=== PATIENT | male | born 2000 | race Caucasian/White ===

== ENCOUNTER 2019-12-23 14:15 | Outpatient (CLI) | payer OTHER, SELFPAY ==
--- NOTE | ~2019-12-23 | CT_ITS ---
EXAMINATION: CT abdomen pelvis wo con DATE: 12/23/2019 14:45 INDICATION: Cellulitis of the umbilicus TECHNIQUE: Computed tomography (CT) of the abdomen and pelvis was performed without intravenous contr ast. Automated exposure control and iterative reconstruction technique were employed. The dose-length product was 536.31 mGy-cm. COMPARISON: 06/17/2018 FINDINGS: Lung bases are clear. Heart size is normal. No pericardial or pleural effusion. Prominent hepatic lillian atosis along the ligamentum teres with significant interval decrease in attenuation but without evide nt mass effect with no change in morphology of the liver at this location. Gallbladder, spleen, pancr eas, bilateral adrenal glands and kidneys are normal. Bowels including the appendix are normal. Bladd er is normal. No free intraperitoneal gas or fluid. No pathologically enlarged abdominal or pelvic ly mphadenopathy. Stopper change of prior umbilical hernia mesh repair. No inflammatory stranding in the surrounding subcutaneous fat. No abscess or other abnormal fluid collections identified. Bones are u nremarkable. IMPRESSION: 1. No acute intra-abdominal/pelvic process. 2. Postoperative change of interval umbilical hernia mesh repair with no abscess or inflammatory stra nding in the surrounding fat. Reviewed, dictated and finalized at location A. IMPRESSION: 1. No acute intra-abdominal/pelvic process. 2. Postoperative change of interval umbilical hernia mesh repair with no absces s or inflammatory stranding in the surrounding fat.
== END 2019-12-23 14:16 | disposition home or self-care (01) ==
LOC: ANHIMG 14:24
PROVIDERS: PCP Family Medicine Adolescent Medicine; Visit Provider Surgery
DX: L03.316 Cellulitis of umbilicus (principal)
CPT/HCPCS: 74176

== ENCOUNTER 2022-05-29 14:11 | Outpatient (CLI) | payer OTHER, SELFPAY ==
--- NOTE | ~2022-05-29 | XR_ITS ---
EXAMINATION: HAND-ABNER ARTHRITIS 3+VIEWS DATE: 05/29/2022 14:23 INDICATION: Hand pain TECHNIQUE: Posteroanterior, lateral, and oblique views of the left and of the right hands as well as a ballcatchers view of both hands were obtained. COMPARISON: None. FINDINGS: Alignment is normal. No fracture. Joint spaces are normal. No erosions or osteophytosis. Soft tissues are unremarkable. IMPRESSION: 1. Normal bilateral hand radiographs. Reviewed, dictated and finalized at location A. TREATMENT OFFSIDER
== END 2022-05-29 14:12 | disposition home or self-care (01) ==
PROVIDERS: PCP Family Medicine; Visit Provider Family Medicine
DX: M79.643 Pain in unspecified hand (principal)
CPT/HCPCS: 73130

== ENCOUNTER 2023-05-04 16:06 | Emergency (ER) | payer OTHER, BC, SELFPAY ==
--- NOTE | ~2023-05-04 | CT_ITS ---
EXAMINATION: CT abdomen pelvis wo con DATE: 05/04/2023 16:37 INDICATION: Abdominal pain TECHNIQUE: Computed tomography (CT) of the abdomen and pelvis was performed without intravenous contr ast. The dose-length product (DLP) was 1594.87 mGy-cm. Automated exposure control and iterative recon struction technique were employed. COMPARISON: 12/23/2019 FINDINGS: The lung bases are clear. The heart size is normal. The liver, spleen, pancreas, gallbladde r, and adrenal glands are normal. The kidneys are unremarkable. No pathologically enlarged abdominal or pelvic lymph nodes are identified. No free intraperitoneal gas or evidence of bowel obstruction. T he appendix is normal. There is inflammatory change surrounding the umbilicus. No discrete abscess is identified although sensitivity is limited by the absence of intravenous contrast. IMPRESSION: 1. Cellulitis surrounding the umbilicus without discrete abscess identified, sensitivity limited with out intravenous contrast. Reviewed, dictated and finalized at location F. FIC SAFETY ADMINISTRATOR IMPRESSION: 1. Cellulitis surrounding the umbilicus without discrete abscess identified, se nsitivity limited without intravenous contrast.
[2023-05-04 16:09] VITALS: BP 156/79; PULSE 106; RESP 19; TEMP 36.2; O2SAT 99
--- NOTE | 2023-05-04 16:21 | ED.ABDPAIN ---
HPI - Abdominal Pain General Chief Complaint: Abdominal Pain Stated Complaint: abdominal pain/hernia complication Time Seen by Provider: 05/04/23 16:08 Source: patient Mode of arrival: ambulatory Limitations: no limitations History of Present Illness HPI narrative: patient is a 22-year-old male with a umbilicus skin redness and drainage where his hernia repair was done back in 2019. Three days ago he started having redness and discomfort around the area of the umbilical area. 20 minutes ago this area started draining pus and blood. He got his surgery done at [facility] back in 2019. elicited complaint: other ( Abdominal wall skin pain at hernia site) Pertinent past history: other ( hernia repair 2019) Onset (ago): day(s) (3) Pain Consistency: constant Location: other ( umbilicus) Severity: mild Pain scale (0-10): 3 Quality: sharp Radiation: none Migration to: no migration Exacerbating factors: nothing Relieving factors: nothing Associated symptoms: denies other symptoms Related Data Allergies Allergy/AdvReac Type Severity Reaction Status Date / Time No Known Allergies Allergy Verified 05/04/23 16:08 Review of Systems Review of Systems: All systems reviewed & are unremarkable except as noted in HPI and below Constitutional: Constitutional: Reports no additional constitutional complaints Eyes: Eyes: Reports no additional eye complaints ENT: Reports system reviewed and no additional complaints, except as documented Cardiovascular: Cardiovascular: Reports no additional cardiovascular complaints Respiratory: Respiratory: Reports no additional respiratory complaints Gastrointestinal: Gastrointestinal: Reports no additional gastrointestinal complaints Genitourinary: Genitourinary: Reports no additional male genitourinary complaints Musculoskeletal: Musculoskeletal: Reports no additional musculoskeletal complaints Integumentary/Breasts: Skin/Breast: Reports system reviewed and no additional complaints, except as docu Neurologic: Reports system reviewed and no additional complaints, except as documented Psychiatric: Psychiatric: Reports no additional psychiatric complaints Endocrine: Endocrine: Reports no additional endocrine complaints Hematologic/Lymphatic: Hematologic/Lymphatic: Reports no additional hematologic/lymphatic complaints Allergic/Immunologic: Allergic/Immunologic: Reports no additional allergic/immunologic complaints PMFSH Past Medical History Medical History ADHD Cellulitis, umbilical Surgical History Surgical History H/O umbilical hernia repair Family History Family History Father Diabetes mellitus Grandparent Cancer Grandparent Heart disease Social History Social History Smoking status: Never smoker Alcohol intake: current Substance use: never Lack of Transportation: No Lack of Food: Never True Current Housing: I Have Housing Concerned About Future Housing: No Difficulty Paying Gas/Electric Bills: No Difficulty Paying for Meds: No Currently Unemployed: No Education: High School Diploma/GED Difficulty w/ Childcare or Family Care: No Living arrangements: with family Occupation/Education: occupation Additional occupation/education comments: [employer] Gender identity (if verbalized by the patient): Male Agree to blood products: Yes Exam Const: General: healthy appearing Nutritional Appearance: well nourished Orientation/consciousness: patient oriented x3 HENMT: Head: normal to inspection Ears: external ears normal Face/Nose/Sinus: Normal external nose present Eyes: Conjunctivae: conjunctivae normal Pupils: Equal, round and reactive pupils present EOM: EOMs intact bilaterally Neck: Neck: normal visual in
[2023-05-04 16:30] VITALS: BP 125/71; PULSE 89; RESP 17; O2SAT 98
--- NOTE | 2023-05-04 16:32 | PC.NURSE ---
patient taken down to CT.
[2023-05-04 17:00] VITALS: BP 121/57; PULSE 88; RESP 17; O2SAT 97
[2023-05-04 17:03] LABS: Basophils Absolute Auto 0.06 K/mm3 (0.00-0.10); Basophils Percent Auto 0.5 % (0.0-1.0); Eosinophils Absolute Auto 0.09 K/mm3 (0.02-0.50); Eosinophils Percent Auto 0.8 % (1.0-6.0); Immature Granulocyte Absolute 0.07 K/mm3 (0.00-0.00); Immature Granulocyte Percent A 0.6 % (0.0-0.0); Lymphocytes Absolute Auto 1.78 K/mm3 (1.10-4.50); Lymphocytes Percent Auto 16.2 % (18.0-42.0); Mean Corpuscular HGB Conc 33.3 g/dL (32.0-36.0); Mean Corpuscular Hemoglobin 28.1 pg (27.0-31.0); Mean Corpuscular Volume 84.4 fL (78.0-102.0); Mean Platelet Volume 9.7 fl (8.7-11.0); Monocytes Absolute Auto 0.56 K/mm3 (0.10-0.90); Monocytes Percent Auto 5.1 % (2.0-11.0); Neutrophils Absolute Auto 8.4 K/mm3 (1.7-7.2); Neutrophils Percent Auto 76.8 % (50.0-70.0); Platelet Count Result 321 K/mm3 (150-420); Red Blood Count 5.33 M/mm3 (4.70-6.10); Red Cell Distribution Width 11.9 % (11.6-14.4)
[2023-05-04 17:14] LABS: INR 1.1; Partial Thromboplastin Time 30.8 SEC (23.90-30.70); Prothrombin Time 11.6 Seconds (9.50-12.10)
[2023-05-04 17:16] LABS: Alanine Aminotransferase 69 U/L (16-63); Albumin Level 4.1 g/dL (3.4-5.0); Alkaline Phosphatase 91 U/L (46-116); Anion Gap 11 mmol/L (8-16); Aspartate Amino Transferase 28 U/L (15-37); Bilirubin,Total 0.5 mg/dL (0.00-1.00); Blood Urea Nitrogen 15 mg/dL (7-18); Calcium 9.3 mg/dL (8.5-10.1); Carbon Dioxide 28 mmol/L (21-32); Chloride 101 mmol/L (98-108); Estimated CRCL calculation 113 ml/min; Estimated Glomerular Filt Rate > 60; Glucose 103 mg/dL (70-99); Osmolality Calculated 290 mOsm/kg (285-295); Potassium 3.3 mmol/L (3.5-5.1); Sodium 140 mmol/L (136-145); Total Protein 8.6 g/dL (6.4-8.2)
[2023-05-04] MEDS: PIPERACILLN/TAZ 3.375GM/NS50ML 3.375 GM/50 ML BAG IVPB (17:16)
[2023-05-04 17:30] VITALS: BP 133/52; PULSE 85; RESP 17; O2SAT 97
[2023-05-04 17:39] LABS: SARS-CoV-2 RNA PCR Negative (Negative)
[2023-05-04 17:53] LABS: Influenza A QL RT-PCR Negative (Negative); Influenza B QL RT-PCR Negative (Negative); RSV RNA, RT-PCR Negative (Negative)
[2023-05-04 18:00] VITALS: BP 134/80; PULSE 84; RESP 17; O2SAT 96
[2023-05-04] MEDS: CIPROFLOXACIN 500 MG TAB PO (18:20)
[2023-05-04] MEDS: POTASSIUM CHLORIDE 20 MEQ ER TABLET PO (18:20)
[2023-05-04 18:25] VITALS: BP 136/85; PULSE 87; RESP 17; TEMP 36.8; O2SAT 99
--- NOTE | 2023-05-08 13:49 | PC.NURSE ---
Final wound culture results, no growth, no further treatment or action needed. Patient was instructed follow up upon discharge.
--- NOTE | 2023-05-11 12:23 | PC.NURSE ---
blood culture reviewed, no growth 5 days
== END 2023-05-04 18:25 | disposition home or self-care (01) ==
PROVIDERS: Emergency Provider Emergency Medicine; PCP Family Medicine
DX: L03.311 Cellulitis of abdominal wall (principal); K42.9 Umbilical hernia without obstruction or gangrene; Z20.822 Contact with and (suspected) exposure to COVID-19
CPT/HCPCS: 36415; 74176; 80053; 85025; 85610; 85730; 87040; 87070; 87205; 87637; 96365; 99284; A9270; J2543

== ENCOUNTER 2023-05-07 00:58 | Day surgery (SDC) | payer OTHER, BC, SELFPAY ==
[2023-05-05 12:34] VITALS: BMI 38.0
--- NOTE | 2023-05-05 12:38 | PC.NURSE ---
Report to the Outpatient Waiting Room, entrance under the green pavilion located off [facility], at time 0800 on date 05/07/23. Planned Procedure Time: 1000. Time changes happen often and if your time is changed the preop area will call you the afternoon before. - You and your visitor will be asked to self-screen and do not enter if you have any COVID symptoms. - A mask is optional within the hospital at this time. Patients may have clear liquids (water, carbonated beverages, clear teas, apple juice) until 3 hours prior to surgery with a maximum of 20 ounces. - No food from midnight until time of surgery Take the following medications with a SIP of water the morning of surgery: ANTIBIOTIC DO NOT STOP ANY OF YOUR OTHER PRESCRIPTION MEDICATIONS PRIOR TO SURGERY ?EXCEPT THE FOLLOWING Medications to discontinue per physician: N/A Date to take last dose: N/A Please no make-up, nail swedish, hairspray, perfume, deodorant, or body powder the day of surgery. No jewelry (including any body piercings) or valuables the day of surgery, leave them at home. Please take a shower or bath the night before, or the morning of, surgery with an antibacterial soap. Wear comfortable, loose fitting clothing. - Jewelry must be removed prior to entering the operating room. Rings and piercings that are not removed may be cut off. - The hospital will not accept responsibility for valuables. - Please leave all valuables, including medications, at home the day of surgery. If you are going home after surgery, a licensed regional owner operator truck driver must drive you home. - NO public transportation without another adult if you receive anesthesia. - We recommend that an adult stay with you for 24 hours following discharge. - We also recommend that you do not drive, make important decision, drink alcoholic beverages, or take any drugs that were not prescribed by your health care provider for at least 24 hours after your discharge time. Follow any additional instructions given to you from your surgeon. If you or anyone in your household have experienced Covid symptoms in the past week, please notify your surgeon or the nurse liaison at the phone number below for possible testing. Telephone instructions given to PT - BELINDA ROWLEY and asked if any additional questions and then verbalized understanding. Patient advised to call surgeon office or pre surgery nurse liaison [phone] if any additional questions.
[2023-05-07] VITALS (10 sets, daily range): BP systolic 114–160; BP diastolic 56–92; PULSE 58–78; RESP 13–18; TEMP 36.6–36.7; O2SAT 92–100
--- NOTE | 2023-05-07 07:36 | WPDHPUPDATE1 ---
History and Physical Update Update Date/Time: 05/07/23 07:36 History and Physical has been reviewed, including an updated exam of the patient. There are NO changes in the patient's condition. Risks, benefits, and alternatives have been discussed and questions answered. Patient agrees to proceed with procedure.
[2023-05-07] MEDS: LACTATED RINGERS 1,000 ML 30 ML IV CONT ×3 (08:30→12:30)
--- NOTE | 2023-05-07 09:17 | WPDANESEPPF ---
Anes - Initial Pre Proc Eval Procedure: Operation Date: 05/07/23 10:00 Proposed Procedures p Incision and Drainage of Umbilical Abscess, Removal of Infected Hernia Mesh - Sd Pelaez MD Date/Time: 05/07/23 09:17 Surgeon: Sd Pelaez MD Pre Op Diagnosis: umbilical abscess and infected mesh Patient Data Age: 22 Gender: M Height: 1.78 m Weight: 120.4 kg Allergies Allergy/AdvReac Type Severity Reaction Status Date / Time No Known Allergies Allergy Verified 05/07/23 09:10 Home Medications Medication Instructions Recorded Confirmed Type ciprofloxacin HCl 500 mg tablet 500 mg PO BID 10 days #20 tabs 05/04/23 05/05/23 Rx (Cipro) Patient hx anesthesia problems: none Family hx anesthesia problems: none Results Review: All pre-operative results and documents have been reviewed as part of the pre-operative evaluation. [facility]LY [facility] Past Medical History Medical History (Updated 05/07/23 @ 09:17 by Ronnie Avila MD) ADHD Cellulitis, umbilical Obesity Surgical History Surgical History H/O umbilical hernia repair Family History Family History Father Diabetes mellitus Grandparent Cancer Grandparent Heart disease Social History Social History Smoking status: Current every day smoker Tobacco type: e-cigarettes/vaping Alcohol intake: current Alcohol use details: VERY RARE Substance use: current Substance use type: marijuana Lack of Transportation: No Lack of Food: Never True Current Housing: I Have Housing Concerned About Future Housing: No Difficulty Paying Gas/Electric Bills: No Difficulty Paying for Meds: No Currently Unemployed: No Education: High School Diploma/GED Difficulty w/ Childcare or Family Care: No Living arrangements: with family Occupation/Education: occupation Additional occupation/education comments: [employer] Gender identity (if verbalized by the patient): Male Spiritual care concerns: No Agree to blood products: Yes Anes - Eval Final PreProcedure Day of Procedure 05/07/23 09:17 Patient weight: obese Heart: regular rate and rhythm Lungs: clear to auscultation Airway: Mallampati scale class II Neurological: alert and oriented Last oral intake: >/= 8 hours ASA classification: II Emergent: no Anesthetic plan: proceed Anesthesia type and monitoring: general ETT and standard monitoring Results Review: All pre-operative results and documents have been reviewed as part of the pre-operative evaluation. Informed Consent: The patient's anesthetic plan and its attendant risks and benefits were discussed with the patient/family/POA. Questions were solicited and answers provided to the satisfaction of the patient/family/POA.
[2023-05-07] MEDS: ceFAZolin 3 GM/D5W 100 ML 100 ML IVPB (09:59)
[2023-05-07] MEDS: BUPIVACAINE/EPINEPHRINE 0.5% 50 ML VIAL 30 ML INFILTRATE (09:59)
--- NOTE | 2023-05-07 10:03 | W.PM.PROC2 ---
Procedure Note - Detailed Date of Procedure 05/07/23 Pre-op Diagnosis umbilical abscess and infected mesh Post-op Diagnosis Same Procedure Performed Incision and drainage of umbilical abscess, removal infected hernia mesh Surgeon Sd Pelaez MD Traffic Survey Technician Hussein Lucia, [facility] Anesthesia General and Local Indications In 2019, patient underwent laparoscopic repair of an incarcerated umbilical hernia with mesh. About a year after that surgery, he presented with an umbilical abscess. This healed after being incised and drained. He has had intermittent periods where the umbilicus would swell but not be particularly painful and would then just go back to normal appearance after a few days. More recently he had significant swelling and spontaneous drainage. He went to the emergency room and was noted to have umbilical infection. I saw him in the office 2 days ago and he had evidence of persistent infection and most likely this is due to infected mesh. He is taken to surgery now for incision and drainage as well as to remove the original mesh. The mesh used was a 4.5 in circular Bard underlay mesh. Findings Umbilical abscess went all the way to the base of the umbilicus and umbilical skin. Skin and fascia at the base of the umbilicus had obvious mesh fibers associated with them. No purulent fluid was noted as it appeared the abscess had drained already. Description of Procedure Patient was taken to surgery and induced into general anesthesia. The abdomen is prepped and draped. I initially inspected the umbilicus, especially the swollen area. There was an area of reddened thin skin which no doubt was the apex of the previous abscess. I then made plans for a midline incision that went just above the umbilicus and just below it and along the curve of the umbilical margin on the patient's left. Local was infiltrated in all these areas. Incision was made and cautery was used for hemostasis. The dissection was carried down to the base of the umbilicus. I then probed the umbilical abscess and found that the abscess went all the way to the base of the umbilicus, IE, the deepest aspect of the umbilical skin. With traction on the umbilicus, I was able to dissect the umbilical skin off the fascia and then make a fascial incision in the midline the length of the skin incision. I opened the fascia in the midline and after parting the rectus muscle fibers, encountered the posterior rectus fascia. I opened this in the midline and found the previously placed mesh densely adherent to the posterior rectus fascia. I went ahead and dissected through the fascia in the midline. I then began dissecting the nearby mesh from the left side of the incision. This was done primarily with the cautery. Eventually I was able to obtain a 1-1-1/2 cm wide strip of mesh. With traction on this and further sharp dissection and cautery, I dissected the omentum off the mesh and eventually excised this area of mesh directly adjacent to the area of the mesh infection. The rest of the mesh in the abdomen was very adherent and well incorporated. I then changed sides and looked at the edge of the abdominal wall on the patient's right. In similar fashion, I was able to isolate the mesh directly deep to the posterior rectus fascia. I dissected another strip of mesh of the same width from the right side of the incision. This was removed the length of the incision as well. Neither of these pieces of mesh had any obvious signs of infection such as purulent fluid or pockets of fluid. On the patient's right side, the remaining mesh was very well incorporated and I did not remove any of that. We then turned our attention back to the umbilical skin abscess. With the probe in the abscess I was able to expose the deepest aspect of the umbilical skin along with some bits of fascia that were adherent to it. I was able to feel some roughened tissue there suggestive of mesh. I then tried to excise the fa
[2023-05-07] MEDS: fentaNYL CITRATE INJ (*CRX) 100 MCG/2 ML VIAL 25 MCG IV PUSH ×6 (12:28→13:20)
== END 2023-05-07 14:16 | disposition home or self-care (01) ==
PROVIDERS: PCP Family Medicine; Visit Provider Surgery
PROC: (CPT 10180; principal; 2023-05-07 10:00)
DX: L02.216 Cutaneous abscess of umbilicus (principal); T85.79XA Infection and inflammatory reaction due to other internal prosthetic devices, implants and grafts, initial encounter; F17.290 Nicotine dependence, other tobacco product, uncomplicated; E66.9 Obesity, unspecified; Z68.38 Body mass index [BMI] 38.0-38.9, adult; Y83.8 Other surgical procedures as the cause of abnormal reaction of the patient, or of later complication, without mention of misadventure at the time of the procedure
CPT/HCPCS: 10180; 11008; 88300; J0690; J1100; J1170; J1596; J2250; J2405; J2704; J2710; J3010; J7120